=== PATIENT | female | born 1990 ===

== ENCOUNTER 2018-05-17 11:35 | Outpatient (CLI) | payer OTHER | END 2018-05-17 12:25 | disposition home or self-care (01) | LOC: MRI 11:35 | DX: M54.5 Low back pain (principal) | CPT/HCPCS: 72148 ==

== ENCOUNTER 2021-12-20 14:32 | Outpatient (CLI) | payer OTHER | END 2021-12-20 16:25 | disposition home or self-care (01) | LOC: PRENATAL 14:32 | PROVIDERS: ATTEND Obstetrics & Gynecology Maternal & Fetal Medicine | DX: O36.5990 Maternal care for other known or suspected poor fetal growth, unspecified trimester, not applicable or unspecified (principal); O35.0XX0 Maternal care for (suspected) central nervous system malformation in fetus, not applicable or unspecified; O26.849 Uterine size-date discrepancy, unspecified trimester ==

== ENCOUNTER 2022-01-03 08:23 | Outpatient (CLI) | payer OTHER | END 2022-01-03 09:30 | disposition home or self-care (01) | LOC: PRENATAL 08:23 | PROVIDERS: ATTEND Obstetrics & Gynecology Maternal & Fetal Medicine | DX: O36.8199 Decreased fetal movements, unspecified trimester, other fetus (principal); O41.00X0 Oligohydramnios, unspecified trimester, not applicable or unspecified ==